=== PATIENT | male | born 1995 | race Native Hawaiian/Other Pacific Islander ===

== ENCOUNTER 2023-11-23 16:04 | Emergency (ER) | payer OTHER ==
[~2023-11-23] VITALS: Ht 177.8 cm; Wt 77.4 kg
[2023-11-23 16:05] VITALS: BP 119/69; TEMP 98.1; O2SAT 98
[2023-11-23] MEDS ORDERED: ACET32TAB PO (16:21)
== END 2023-11-23 18:30 | disposition left against medical advice (07) ==
LOC: EDBD 16:04 → M ED 16:04
DX: Z53.21 Procedure and treatment not carried out due to patient leaving prior to being seen by health care provider (principal)